=== PATIENT | female | born 1985 | race Caucasian/White ===

== ENCOUNTER 2017-04-02 22:27 | Inpatient (IN) | payer OTHER ==
[2017-04-02 23:17] LABS: % IMMATURE GRANULYOCYTES 0.5 % (0.0-1.1); ABSOLUTE IMMATURE GRANULOCYTES 0.06 10^3/uL (0.00-0.10); ADD DIFF? NO; ADD MORPH? NO; ADD SCAN? NO; ATYPICAL LYMPHOCYTE FLAG 0 (0-99); FRAGMENT RBC FLAG 0 (0-99); HEMATOCRIT 39.9 % (38.0-47.0); HEMOGLOBIN 14.2 g/dL (12.6-16.3); LEFT SHIFT FLG 0 (0-99); LIPEMIA HEMOLYSIS FLAG 90 (0-99); MEAN CELL HEMOGLOBIN 31.8 pg (27.9-34.1); MEAN CELL HEMOGLOBIN CONCENTR. 35.6 g/dL (32.4-36.7); MEAN CELL VOLUME 89.5 fL (81.5-99.8); MEAN PLATELET VOLUME 11.4 fL (8.7-11.7); PLATELET CLUMPS FLAG 0 (0-99); PLATELET COUNT 173 10^3/uL (150-400); RED BLOOD CELL COUNT 4.46 10^6/uL (4.18-5.33); RED CELL DISTRIBUTION WIDTH 12.9 % (11.5-15.2)
[2017-04-02 23:27] LABS: ALANINE AMINOTRANSFERASE 25 IU/L (9-52); ASPARTATE AMINOTRANSFERASE 19 IU/L (14-46); CREATININE 0.8 mg/dL (0.6-1.0); GLOMERULAR FILTRATION RATE > 60; LACTATE DEHYDROGENASE 394 IU/L (313-618); URIC ACID 3.9 mg/dL (2.5-6.8)
[2017-04-02 23:30] LABS: BILIRUBIN,TOTAL < 0.1 mg/dL (0.1-1.4); BILIRUBIN-CONJUGATED 0.1 mg/dL (0.0-0.5)
[2017-04-03] MEDS ORDERED: OLIVE OIL 118 ML BTL MISC PRN (00:27)
[2017-04-03] MEDS ORDERED: TERBUTALINE SULFATE 1 MG/ML VIAL IV PRN (00:27)
[2017-04-03] MEDS ORDERED: LR 1,000 ML IV PRN (00:27)
[2017-04-03] MEDS ORDERED: EPSOM SALT 454 GM TP PRN (00:27)
[2017-04-03] MEDS ORDERED: OXYTOCIN 20 UNIT in LR 1,000 ML IV PRN (00:27)
[2017-04-03] MEDS: MISOPROSTOL 100 MCG TAB PO SCH ×2 (00:42→05:37)
[2017-04-03] MEDS ORDERED: OXYTOCIN 10 UNIT/ML VIAL ONE (01:29)
[2017-04-03] MEDS ORDERED: OLIVE OIL 118 ML BTL ONE (01:29)
[2017-04-03] MEDS ORDERED: MISOPROSTOL 200 MCG TAB ONE (01:29)
[2017-04-03] MEDS ORDERED: LIDOCAINE 1% 300 MG/30 ML SDV ONE (01:29)
[2017-04-03] MEDS ORDERED: AMMONIA AROMATIC 1 EACH AMP IH ONE (01:29)
[2017-04-03] MEDS ORDERED: TERBUTALINE SULFATE 1 MG/ML VIAL ONE (01:29)
[2017-04-03] MEDS ORDERED: BUPIVACAINE 0.25% 30 ML SDV ONE (07:22)
[2017-04-03] MEDS ORDERED: PHENYLEPHRINE HCL 100 MCG/ML SYR ONE (07:22)
[2017-04-03] MEDS ORDERED: fentaNYL 100 MCG/2 ML INJ ONE (07:22)
[2017-04-03] MEDS ORDERED: PHENYLEPHRINE HCL 100 MCG/ML SYR IVP PRN (07:53)
[2017-04-03] MEDS ORDERED: ONDANSETRON 4 MG/2 ML VIAL IVP PRN (07:53)
--- NOTE | 2017-04-03 07:54 | POSTANESTH ---
Post Anesthetic Evaluation Cardiovascular Status: Normal, Stable, Similar to Pre-Op Cond Respiratory Status: Normal, Stable, Similar to Pre-op Cond. Level of Consciousness/Mental Status: Can Participate in Eval, Alert and Oriented Pain Control: Adequate, Prn Tx Ordered Nausea/Vomiting Control: Adequate, Prn Tx Ordered Complications Possibly Related to Anesthesia: None Noted
[2017-04-03] MEDS ORDERED: [UNRECOGNIZED DRUG - MIXTURE] EP SCH (08:00)
[2017-04-03] MEDS ORDERED: LR 500 ML IV SCH (08:00)
--- NOTE | 2017-04-03 08:16 | OBPROG ---
Labor Progress Note Assessment/Plan: Assessment: Plan: Objective: 04/02/17 22:45 04/02/17 22:45 Patient ABO/Rh A POSITIVE 04/03/17 00:10 Uric Acid 3.9 mg/dL (2.5-6.8) 04/02/17 22:45 Total Bilirubin < 0.1 mg/dL (0.1-1.4) L 04/02/17 22:45 Conjugated Bilirubin 0.1 mg/dL (0.0-0.5) 04/02/17 22:45 Unconjugated Bilirubin 0.0 mg/dL (0.0-1.1) 04/02/17 22:45 AST 19 IU/L (14-46) 04/02/17 22:45 ALT 25 IU/L (9-52) 04/02/17 22:45 Lactate Dehydrogenase 394 IU/L (313-618) 04/02/17 22:45 - SVE Dilation (cm): 5 Effacement (%): 100 Station: -1 Membranes: SROM Amniotic Fluid Color: Clear - Contraction Pattern Assessment Current Contraction Pattern: Regular - FHR Assessment Marcus FHR (bpm): 125 FHR Pattern Variability: Moderate FHR Category: 1 - Physical Exam General Appearance: WD/WN, alert, no apparent distress Respiratory: chest non-tender, lungs clear, normal breath sounds Cardiac/Chest: regular rate, rhythm Abdomen: normal bowel sounds Extremities: normal range of motion, Waylon's sign (negative bilaterally) DTR- Lower Extremities: Knee (R): 1+, Knee (L): 1+ (no clonus) Skin: normal color, warm/dry Neuro/Psych: no motor/sensory deficits, alert, normal mood/affect, oriented x 3 Oxytocin Orders Assessment - Pre-Induction/Augmentation Assessment Gestational Age: 39 week(s) and 1 day(s) ICD10 Worksheet Patient Problems: Problems Problem Status Onset TERM LABOR ROM Acute
[2017-04-03] MEDS ORDERED: fentaNYL 200 MCG, BUPIVACAINE 0.5% 20 ML in NS 100 ML EP SCH (08:30)
--- NOTE | 2017-04-03 09:43 | OBPROG ---
Labor Progress Note Assessment/Plan: Assessment:cat 2 low fhr baseline continued clear fluid denies pain after the epidural exam 7/100/0 cephalic irregular contractions after the epidural iupc placed to assist with assessment of contractions Plan:expectant management of labor 04/03/17 09:40 Objective: 04/02/17 22:45 04/02/17 22:45 Patient ABO/Rh A POSITIVE 04/03/17 00:10 Uric Acid 3.9 mg/dL (2.5-6.8) 04/02/17 22:45 Total Bilirubin < 0.1 mg/dL (0.1-1.4) L 04/02/17 22:45 Conjugated Bilirubin 0.1 mg/dL (0.0-0.5) 04/02/17 22:45 Unconjugated Bilirubin 0.0 mg/dL (0.0-1.1) 04/02/17 22:45 AST 19 IU/L (14-46) 04/02/17 22:45 ALT 25 IU/L (9-52) 04/02/17 22:45 Lactate Dehydrogenase 394 IU/L (313-618) 04/02/17 22:45 - SVE Dilation (cm): 7 Effacement (%): 100 Station: 0 Membranes: SROM Amniotic Fluid Color: Clear - Contraction Pattern Assessment Current Contraction Pattern: Regular - Physical Exam General Appearance: WD/WN, alert, no apparent distress Extremities: normal range of motion, Waylon's sign (negative bilaterally) DTR- Lower Extremities: Knee (R): 1+, Knee (L): 1+ (no clonus) Skin: normal color, warm/dry Neuro/Psych: no motor/sensory deficits, alert, normal mood/affect, oriented x 3 Oxytocin Orders Assessment - Pre-Induction/Augmentation Assessment Gestational Age: 39 week(s) and 1 day(s) ICD10 Worksheet Patient Problems: Problems Problem Status Onset TERM LABOR ROM Acute
--- NOTE | 2017-04-03 10:13 | GHP ---
[f rep st] HISTORY AND PHYSICAL DATE OF ADMISSION: 04/03/2017 HISTORY OF PRESENT ILLNESS: The patient is a 31-year-old, 1, para 0, with an EDC of 04/08/2017, who comes in early a.m. of 04/03/2017 with complaints of rupture of membranes since Monday late in the evening. She states feeling positive movement. States leaking clear fluid. Denies bleeding. The patient has been routinely seeing [facility] since 9 weeks. Had an early ultrasound that confirmed dates. MEDICAL ASSESSMENT: IBS with constipation, migraine headaches, chronic, avoids meds, see chiropractor, acupuncture for years since college. PAST SURGICAL HISTORY: Tonsillectomy in 2009, wisdom teeth. Gluten-free, dairy-free diet. FAMILY HISTORY: Benign. SOCIAL HISTORY: Denies drug use. Denies tobacco use. Lives with _Geoff __. GYNECOLOGICAL HISTORY: Menarche at 12 years old. Interval is 28 days. Length is 4 days, normal cycle. LMP was 07/02/2016. The patient is a primip. Other gynecological history: NuvaRing, OCPs, colposcopy for an abnormal Pap that was normal after, history of HPV positive with genital warts. PHYSICAL EXAMINATION: GENERAL: Patient is awake, alert, oriented x3. LUNGS: Clear bilaterally. ABDOMEN: Bowel sounds are positive in all 4 quadrants. NEUROLOGIC: DTRs are 1+ with no clonus. Homans sign is negative. ALLERGIES: The patient is not allergic to any medications. MEDICATIONS: Taking multivitamins, with vitamins with DHA. ROS x 8 wnl LABS: Patient is A positive, antibody negative. RPR is nonreactive. Rubella is low immune. Hepatitis is negative. HIV is negative. Trio screen is negative. Gonorrhea and chlamydia are negative. Pap was within normal limits. _HPV was negative. One-hour GTT was within normal limits. PLAN: 1. An epidural for pain relief. 2. Expectant management of labor. 3. Patient is GBS negative. 4. IUPC for adequacy of contraction strength after epidural. /[id number]/MODL MTDD
[2017-04-03] MEDS ORDERED: OXYTOCIN 30 UNIT in NS 500 ML IV SCH (10:15)
--- NOTE | 2017-04-03 10:23 | PREANESOB ---
Obstetric Pre-Anesthesia Info - General Info Proposed Procedure: Labor and delivery : 1 Para: 0 JAROCHO: 04/08/17 Gestational Age: 39 week(s) and 1 day(s) - Info Status: Full Term Monitors: External FHR Baseline (bpm): 120 FHR Pattern: Reassuring - Labor Status Cervical Dilation per last OB SVE: 5 Station per last OB SVE: 0 Amniotic Fluid Color: Clear Indications for Labor Analgesia: Pain Control Labor Epidural: Proposed Anesthesia ROS: Negative. Allergies/Adverse Reactions: Allergy/AdvReac Type Severity Reaction Status Date / Time No Known Allergies Allergy Unverified 04/02/17 22:32 Visit Medications: Generic Name Dose Route Start Last Admin Trade Name Freq PRN Reason Stop Dose Admin Diphenhydramine HCl 25 - 50 mg 04/03/17 07:53 Benadryl Injection IVP 09/30/17 07:52 Q6HRS PRN Itching Lactated Ringer's 1,000 mls @ 0 mls/hr 04/03/17 00:27 Lr IV 04/04/17 00:26 PRN PRN SEE PROTOCOL CONDITIONS Protocol Per Protocol Oxytocin 20 unit/ Lactated 1,002 mls @ 150 mls/hr 04/03/17 00:27 Ringer's IV PRN PRN Post- bleeding Lactated Ringer's 500 mls @ 0 mls/hr 04/03/17 08:00 Lr IV 09/30/17 07:59 CONT TRELL As Directed Fentanyl 200 mcg/ Bupivacaine 124 mls @ 0 mls/hr 04/03/17 08:30 HCl 20 ml/ Sodium Chloride EP 04/13/17 07:59 CONT TRELL Protocol As Directed Oxytocin 30 unit/ Sodium 503 mls @ 0 mls/hr 04/03/17 10:15 Chloride IV 09/30/17 10:14 CONT TRELL Per Protocol Ibuprofen 600 mg 04/03/17 00:27 Motrin PO 09/30/17 00:26 Q6HRS PRN post , inflammation Magnesium Sulfate 454 gm 04/03/17 00:27 Epsom Salt TP 09/30/17 00:26 Q1H PRN perineal discomfort [place] Oil 118 ml 04/03/17 00:27 Sweet Oil MISC 09/30/17 00:26 ONCE PRN perineal massage Ondansetron HCl 4 mg 04/03/17 07:53 Zofran IVP 04/04/17 07:52 Q4HRS PRN Nausea/Vomiting, Can't Take PO Phenylephrine HCl 100 mcg 04/03/17 07:53 Neosynephrine IVP 09/30/17 07:52 .Q2M PRN Hypotension Terbutaline Sulfate 0.25 mg 04/03/17 00:27 Brethine IV 09/30/17 00:26 ONCE PRN Tachysystole Discontinued Medications Generic Name Dose Route Start Last Admin Trade Name Freq PRN Reason Stop Dose Admin Ammonia (Aromatic Spirit) Confirm 04/03/17 01:29 Ammonia Aromatic Administered 04/03/17 01:30 Dose 1 each IH .STK-MED ONE Bupivacaine HCl Confirm 04/03/17 07:22 Sensorcaine 0.25% Sdv Administered 04/03/17 07:23 Dose 30 ml .ROUTE .STK-MED ONE Fentanyl Confirm 04/03/17 07:22 Sublimaze Administered 04/03/17 07:23 Dose 100 mcg .ROUTE .STK-MED ONE Fentanyl/Bupivacaine HCl 1 ea/ 100 mls @ 0 mls/hr 04/03/17 08:00 Sodium Chloride EP 04/13/17 07:59 CONT TRELL Protocol As Directed Lidocaine HCl Confirm 04/03/17 01:29 Lidocaine Hcl 1% Administered 04/03/17 01:30 Dose 300 mg .ROUTE .STK-MED ONE Misoprostol 50 mcg 04/03/17 00:15 04/03/17 05:37 Cytotec PO 04/03/17 04:16 Not Given Q4H [facility] Misoprostol Confirm 04/03/17 01:29 Cytotec Administered 04/03/17 01:30 Dose 800 mcg .ROUTE .STK-MED ONE [place] Oil Confirm 04/03/17 01:29 Sweet Oil Administered 04/03/17 01:30 Dose 118 ml .ROUTE .STK-MED ONE Oxytocin Confirm 04/03/17 01:29 Pitocin Administered 04/03/17 01:30 Dose 40 unit .ROUTE .STK-MED ONE Phenylephrine HCl Confirm 04/03/17 07:22 Neosynephrine Administered 04/03/17 07:23 Dose 1,000 mcg .ROUTE .STK-MED ONE Terbutaline Sulfate Confirm 04/03/17 01:29 Brethine Administered 04/03/17 01:30 Dose 1 mg .ROUTE .STK-MED ONE - Vital Signs Blood Pressure: 143/82 Heart Rate: 80 Respiratory Rate: 16 Height/Weight (Nursing): Height 175.26 cm Weight 95.254 kg - Focused Exam Neck exam: FROM Mallampati Score: Class 1 Mouth exam: normal dental/mouth exam Pulmonary: no respiratory distress Cardiovascular: regular rate and rhythym Labs: 04/02/17 22:45 04/02/17 22:45 Patient ABO/Rh A POSITIVE 04/03/17 00:10 Uric Acid 3.9 mg/dL (2.5-6.8) 04/02/17 22:45 Total Bilirubin < 0.1 mg/dL (0.1-1.4) L 04/02/17 22:45 Conjugated Bilirubin 0.1 mg/dL (0.0-0.5) 04/02/17 22:45 Unconjugated Bilirubin 0.0 mg/dL (0.0-1.1) 04/02/17 22:45 AST 19 IU/L (14-46) 04/02/17 22:45 ALT 25 IU/L (9-52) 04/02/17 22:45 Lactate Dehydrogenase 394 IU/L (313-618) 04/02/17 22:45 - Plan Anesthetic Plan: BRAD Consent Signed and on Chart: Yes Patient/Guardian Understands and Agrees to Plan: Yes Urgent/Emergent Case: Carleenamanda coral completed preop but documented later for safe timely pt care
[2017-04-03 10:25] VITALS: RESP 16
--- NOTE | 2017-04-03 13:08 | OBPROG ---
Labor Progress Note Assessment/Plan: Assessment:cat 2 variable decelerations low fhr baseline continued clear fluid denies pain after the epidural exam 10/100/+1 cephalic regular contractions pitocin at 6mu iupc placed to assist with assessment of contractions Plan:expectant management of labor 04/03/17 09:40 04/03/17 13:06 Objective: 04/02/17 22:45 04/02/17 22:45 Patient ABO/Rh A POSITIVE 04/03/17 00:10 Uric Acid 3.9 mg/dL (2.5-6.8) 04/02/17 22:45 Total Bilirubin < 0.1 mg/dL (0.1-1.4) L 04/02/17 22:45 Conjugated Bilirubin 0.1 mg/dL (0.0-0.5) 04/02/17 22:45 Unconjugated Bilirubin 0.0 mg/dL (0.0-1.1) 04/02/17 22:45 AST 19 IU/L (14-46) 04/02/17 22:45 ALT 25 IU/L (9-52) 04/02/17 22:45 Lactate Dehydrogenase 394 IU/L (313-618) 04/02/17 22:45 Temp Pulse Resp BP Pulse Ox 80 16 143/82 H 04/03/17 10:25 04/03/17 10:25 04/03/17 10:25 - SVE Dilation (cm): 10 Effacement (%): 100 Station: +1 Membranes: SROM Amniotic Fluid Color: Clear - Contraction Pattern Assessment Current Contraction Pattern: Regular Oxytocin Orders Assessment - Pre-Induction/Augmentation Assessment Gestational Age: 39 week(s) and 1 day(s) ICD10 Worksheet Patient Problems: Problems Problem Status Onset TERM LABOR ROM Acute
[2017-04-03] MEDS ORDERED: ACETAMINOPHEN 500 MG TAB PO ONE ×2 (14:02→14:03)
[2017-04-03] MEDS ORDERED: HYDROCODONE/APAP 5/325 TAB PO PRN (16:10)
[2017-04-03] MEDS ORDERED: MEASLES,MUMPS&RUBELLA VACC/PF 0.5 ML VIAL SC ONE (16:11)
--- NOTE | 2017-04-03 16:15 | OBDEL ---
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 [employer]ER: Sheridan Pelaez Indications for Delivery: SROM Vaginal Delivery - Delivery Provider Delivery Physician/CNM: Khadra Oneill - Labor and Delivery Onset of Contractions Date: 04/03/17 Onset of Contractions Time: 01:30 Onset of Contractions Type: Augmented Rupture of Membranes Date: 04/01/17 Rupture of Membranes Time: 15:00 Rupture of Membranes Type: Spontaneous Amniotic Fluid Color: Clear Dilation Complete Date: 04/03/17 Dilation Complete Time: 12:51 Placenta Delivery Date: 04/03/17 Placenta Delivery Time: 15:45 Total Hours of Labor: 14 Non-surgical Procedures: IUPC Episiotomy: Midline Laceration: 2nd Degree Repair: 2-0, 3-0, Vicryl Vaginal Sponge Count Correct: Yes Vaginal Needle Count Correct: Yes Vaginal Sweep Performed: Yes EBL: 350 - Medications Labor Augmentation/Induction Methods Used: Pitocin, Misoprostol Labor Augmentation/Induction Indication: Other (Specify) (prolonged ROM with out real labor) Assissted Delivery Assisted Delivery Type: Vacuum Station: +2 Pop offs (Total): 3 Pulls (Total): 8 Assisted Delivery Comment: Maternal exhaustion, Vacuum helped head descend but after 3 popoffs, the vacuum asst was stopped and pt pushed adeq to deliver after MLE [place] Data JAROCHO: 04/08/17 Gestational Age: 39 week(s) and 2 day(s) Marcus Delivery Date: 04/03/17 Delivery Time: 15:36 Sex of : Male Score (1 Min): 8 Score (5 Min): 9 ICD10 Worksheet Patient Problems: Problems Problem Status Onset Status post vacuum-assisted vaginal delivery Acute
--- NOTE | 2017-04-03 16:22 | OBPROG ---
Labor Progress Note Assessment/Plan: Assessment:cat 2 variable decelerations low fhr baseline continued clear fluid denies pain after the epidural exam 10/100/+1 cephalic regular contractions pitocin at 6mu iupc placed to assist with assessment of contractions Plan:expectant management of labor 04/03/17 09:40 04/03/17 13:06 Subjective/Intrapartum Course: srom clear fluid 04/01/1500 irregular contractions cytotec 50mcg at 0130 2016 epidural/augmentation with pitocin iupc placed. Mityvac and assistance with pushing. 04/03/17 16:19 Objective: 04/02/17 22:45 04/02/17 22:45 Patient ABO/Rh A POSITIVE 04/03/17 00:10 Uric Acid 3.9 mg/dL (2.5-6.8) 04/02/17 22:45 Total Bilirubin < 0.1 mg/dL (0.1-1.4) L 04/02/17 22:45 Conjugated Bilirubin 0.1 mg/dL (0.0-0.5) 04/02/17 22:45 Unconjugated Bilirubin 0.0 mg/dL (0.0-1.1) 04/02/17 22:45 AST 19 IU/L (14-46) 04/02/17 22:45 ALT 25 IU/L (9-52) 04/02/17 22:45 Lactate Dehydrogenase 394 IU/L (313-618) 04/02/17 22:45 Temp Pulse Resp BP Pulse Ox 80 16 143/82 H 04/03/17 10:25 04/03/17 10:25 04/03/17 10:25 - SVE Membranes: SROM Amniotic Fluid Color: Clear Dilation Complete Date: 04/03/17 Dilation Complete Time: 12:51 - Contraction Pattern Assessment Current Contraction Pattern: Regular - Procedures Non-surgical Procedures: IUPC - AP Antepartum Course: edc 04/08/2017 39.2/7 weeks chronic migraines ibs rubella low immune gbs negative 04/03/17 16:21 Oxytocin Orders Assessment - Pre-Induction/Augmentation Assessment Gestational Age: 39 week(s) and 1 day(s) ICD10 Worksheet Patient Problems: Problems Problem Status Onset Status post vacuum-assisted vaginal delivery Acute
[2017-04-03] MEDS: IBUPROFEN 600 MG TAB PO PRN ×2 (16:32→22:23)
[2017-04-03] MEDS: DOCUSATE SODIUM 100 MG CAP PO PRN (22:23)
[2017-04-04] MEDS: IBUPROFEN 600 MG TAB PO PRN ×4 (04:46→23:42)
--- NOTE | 2017-04-04 11:00 | OBPP ---
Progress Note Assessment/Plan: Assessment: 31 y/o PPD #1 s/p vacuum-assisted vaginal delivery doing well. Plan: Iron today, support and routine PPC. 04/04/17 10:59 Subjective/ Course: 04/04/17 10:57 Pt is doing well this am. She had a good amount of sleep this am and feels good. Her cramping is well controlled with Ibuprofen and she is ambulating and voiding without difficulty. Baby had to be transferred to NICU due to hypoglycemia yesterday, but is stable now. She is nursing and pumping and getting small amounts of collostrum. Objective: 04/02/17 22:45 04/02/17 22:45 Patient ABO/Rh A POSITIVE 04/03/17 00:10 Uric Acid 3.9 mg/dL (2.5-6.8) 04/02/17 22:45 Total Bilirubin < 0.1 mg/dL (0.1-1.4) L 04/02/17 22:45 Conjugated Bilirubin 0.1 mg/dL (0.0-0.5) 04/02/17 22:45 Unconjugated Bilirubin 0.0 mg/dL (0.0-1.1) 04/02/17 22:45 AST 19 IU/L (14-46) 04/02/17 22:45 ALT 25 IU/L (9-52) 04/02/17 22:45 Lactate Dehydrogenase 394 IU/L (313-618) 04/02/17 22:45 Temp Pulse Resp BP Pulse Ox 37.5 C 79 16 122/81 H 94 04/03/17 20:30 04/03/17 20:30 04/03/17 20:30 04/03/17 20:30 04/03/17 20:30 Uterine Position/Fundal Height: Umbilicus -2 Uterine Tone: Firm Physical Exam - Physical Exam Neck: non-tender, full range of motion, supple Respiratory: chest non-tender, lungs clear, normal breath sounds Cardiac/Chest: regular rate, rhythm Abdomen: normal bowel sounds Extremities: swelling (tr), Waylon's sign (eyal)
[2017-04-04] MEDS: DOCUSATE SODIUM 100 MG CAP PO PRN ×2 (11:09→21:41)
[2017-04-04] MEDS ORDERED: MEASLES,MUMPS&RUBELLA VACC/PF 0.5 ML VIAL SC ONE (21:30)
[2017-04-05] MEDS: IBUPROFEN 600 MG TAB PO PRN ×2 (08:37→14:29)
[2017-04-05] MEDS: DOCUSATE SODIUM 100 MG CAP PO PRN (08:37)
[2017-04-05 13:15] VITALS: TEMP 96.9; O2SAT 95
[2017-04-05 16:37] VITALS: BP 122/77; PULSE 84
[2017-04-05] MEDS ORDERED: SENNOSIDES 1 TAB PO ONE (18:17)
--- NOTE | 2017-04-05 18:21 | OBPP ---
Progress Note Assessment/Plan: Assessment: ppd# 2 s/p baby in NICU for blood sugars breast feeding rubella non immune increased edema and elevated blood pressures x 1 Plan: routine post care and discharge instructions mmr vaccine given PIH precautions 04/05/17 18:18 Subjective/ Course: 04/04/17 10:57 Pt is doing well this am. She had a good amount of sleep this am and feels good. Her cramping is well controlled with Ibuprofen and she is ambulating and voiding without difficulty. Baby had to be transferred to NICU due to hypoglycemia yesterday, but is stable now. She is nursing and pumping and getting small amounts of collostrum. 04/05/17 18:20 patient is doing well. pain is well controlled. normal lochia. denies headache and changes in vision. has increased lower extremity edema. breast feeding is going well. Objective: 04/02/17 22:45 04/02/17 22:45 Patient ABO/Rh A POSITIVE 04/03/17 00:10 Uric Acid 3.9 mg/dL (2.5-6.8) 04/02/17 22:45 Total Bilirubin < 0.1 mg/dL (0.1-1.4) L 04/02/17 22:45 Conjugated Bilirubin 0.1 mg/dL (0.0-0.5) 04/02/17 22:45 Unconjugated Bilirubin 0.0 mg/dL (0.0-1.1) 04/02/17 22:45 AST 19 IU/L (14-46) 04/02/17 22:45 ALT 25 IU/L (9-52) 04/02/17 22:45 Lactate Dehydrogenase 394 IU/L (313-618) 04/02/17 22:45 Temp Pulse Resp BP Pulse Ox 36.1 C 84 16 122/77 H 95 04/05/17 12:30 04/05/17 16:36 04/05/17 12:30 04/05/17 16:36 04/05/17 12:30 Physical Exam - Physical Exam Neck: non-tender, full range of motion, supple Respiratory: chest non-tender, lungs clear, normal breath sounds Cardiac/Chest: normal peripheral pulses, regular rate, rhythm Abdomen: normal bowel sounds, non-tender Extremities: normal range of motion, non-tender, normal inspection, normal capillary refill, pedal edema Skin: normal color, warm/dry Neuro/Psych: no motor/sensory deficits, alert, normal mood/affect, oriented x 3
--- NOTE | 2017-04-05 18:24 | OBGCSDC ---
General Delivery Information - General Info : 1 Para: 1 Abortions: 0 Type: Vaginal L&D Analgesia/Anesthesia Type: Epidural, Nitrous Admission Date: 04/03/17 Labs: Patient ABO/Rh A POSITIVE 04/03/17 00:10 Hct 39.9 % (38.0-47.0) 04/02/17 22:45 - Hospital Course Antepartum: edc 04/08/2017 39.2/7 weeks chronic migraines ibs rubella low immune gbs negative 04/03/17 16:21 Intrapartum: srom clear fluid 04/01/1500 irregular contractions cytotec 50mcg at 0130 2016 epidural/augmentation with pitocin iupc placed. Mityvac and assistance with pushing. 04/03/17 16:19 : 04/04/17 10:57 Pt is doing well this am. She had a good amount of sleep this am and feels good. Her cramping is well controlled with Ibuprofen and she is ambulating and voiding without difficulty. Baby had to be transferred to NICU due to hypoglycemia yesterday, but is stable now. She is nursing and pumping and getting small amounts of collostrum. 04/05/17 18:20 patient is doing well. pain is well controlled. normal lochia. denies headache and changes in vision. has increased lower extremity edema. breast feeding is going well. Vaginal - Delivery Provider Delivery Physician/CNM: Khadra Oneill - Diagnosis Labor: Augmented Rupture of Membranes Type: Spontaneous Amniotic Fluid Color: Clear Episiotomy: Midline Laceration: 2nd Degree Repair: 2-0, 3-0, Vicryl - Procedures Assisted Delivery Type: Vacuum Non-surgical Procedures: IUPC - Delivery Non-surgical Procedures: IUPC [place] Data JAROCHO: 04/08/17 Gestational Age: 39 week(s) and 4 day(s) Marcus Delivery Date: 04/03/17 Delivery Time: 15:36 Sex of : Male Score (1 Min): 8 Score (5 Min): 9 Discharge Information - Discharge Information Condition: Good Instruction/Follow Up: One Week (this week for blood pressure check), Four Weeks , Six Weeks
== END 2017-04-05 19:00 | disposition home or self-care (01) | DRG 775 ==
LOC: FLD 22:27 → OBSVTOIN 04-03 00:27 → FOB 04-03 18:55
PROVIDERS: ADMIT Obstetrics & Gynecology; ATTEND Obstetrics & Gynecology
DX: O75.81 Maternal exhaustion complicating labor and delivery (principal); Z37.0 Single live birth; O70.1 Second degree perineal laceration during delivery; Z3A.39 39 weeks gestation of pregnancy
CPT/HCPCS: J2370; J3010; J3105